=== PATIENT | female | born 1985 | race Native Hawaiian/Other Pacific Islander ===

== ENCOUNTER 2017-01-10 11:14 | Emergency (ER) | payer OTHER ==
[~2017-01-10] VITALS: Ht 162.6 cm; Wt 70.3 kg
[2017-01-10 11:18] VITALS: TEMP 98
[2017-01-10 12:09] LABS: PLATELET COUNT 256 K/uL (152-353)
[2017-01-10 12:16] LABS: POTASSIUM 3.5 mmol/L (3.6-5.2); SODIUM 138 mmol/L (136-145)
[2017-01-10 14:15] VITALS: BP 122/74
== END 2017-01-10 14:40 | disposition home or self-care (01) ==
LOC: ED 11:14
DX: R10.11 Right upper quadrant pain (principal); B96.81 Helicobacter pylori [H. pylori] as the cause of diseases classified elsewhere; K29.70 Gastritis, unspecified, without bleeding
CPT/HCPCS: 36591; 80053; 82150; 83690; 85027; 86318; 99283; Q9963

== ENCOUNTER 2017-01-24 15:20 | Emergency (ER) | payer OTHER ==
[~2017-01-24] VITALS: Ht 162.6 cm; Wt 68.0 kg
[2017-01-24 15:10] VITALS: BP 149/83; TEMP 97.8
== END 2017-01-24 17:05 | disposition home or self-care (01) ==
LOC: ED 15:20
PROC: 0HQFXZZ Repair Right Hand Skin, External Approach (ICD-10-PCS; principal; 2017-01-24)
DX: S61.312A Laceration without foreign body of right middle finger with damage to nail, initial encounter (principal); S62.662A Nondisplaced fracture of distal phalanx of right middle finger, initial encounter for closed fracture; X58.XXXA Exposure to other specified factors, initial encounter; Y92.63 Factory as the place of occurrence of the external cause
CPT/HCPCS: 36415; 90471; 90715; 96365; 96375; 96376; 99284; J0696; J1170; J2405; J7040